=== PATIENT | female | born 1975 | race Caucasian/White ===

== ENCOUNTER → 2025-04-20 12:33 | Outpatient (BNVA) | payer OTHER, SELFPAY | PROVIDERS: Visit Provider Registered Nurse | DX: Z13.89 Encounter for screening for other disorder (principal) | CPT/HCPCS: 99202 ==

== ENCOUNTER → 2025-04-28 11:54 | Outpatient (BNVA) | payer OTHER, SELFPAY | PROVIDERS: Visit Provider Physician Assistant | DX: Z13.89 Encounter for screening for other disorder (principal) | CPT/HCPCS: 73564; 99215 ==

== ENCOUNTER → 2025-05-11 12:24 | Outpatient (BNVA) | payer OTHER, SELFPAY | PROVIDERS: Visit Provider Registered Nurse | DX: Z13.89 Encounter for screening for other disorder (principal) | CPT/HCPCS: 99213 ==

== ENCOUNTER 2025-08-30 08:29 | Outpatient (REF) | payer SELFPAY ==
--- NOTE | ~2025-08-30 | XR_ITS ---
EXAMINATION: XR KNEE 3 VIEWS LEFT HISTORY: M25.562 - Pain in left knee COMPARISON: Comparison is made with the prior examination dated 04/28/2025. FINDINGS: Standing AP views of both knees and additional lateral and sunrise patellar views of the left knee are submitted. Osseous mineralization is normal. There is no fracture or dislocation. The joint spaces are preserved. The soft tissues are unremarkable. There is no joint effusion. XR/XR knee LT 3V IMPRESSION: Unremarkable examination of the left knee. Electronically signed by: Colin Jacinto MD 08/30/2025 09:49 AM EST
== END 2025-08-30 08:30 | disposition home or self-care (01) ==
LOC: HO.HOSX 08:29
PROVIDERS: Visit Provider Physician Assistant
DX: S80.02XA Contusion of left knee, initial encounter (principal); M17.12 Unilateral primary osteoarthritis, left knee; W22.8XXA Striking against or struck by other objects, initial encounter; Y92.89 Other specified places as the place of occurrence of the external cause; Y93.89 Activity, other specified; Y99.0 Civilian activity done for income or pay
CPT/HCPCS: 20610; 73562; 99202; J0665; J1100; J2003

== ENCOUNTER 2025-08-30 09:33 | Outpatient (AMB) | payer OTHER, SELFPAY ==
--- NOTE | 2025-08-30 09:42 | MHC.OFFVIS ---
Vital Signs 08/30/25 09:48 Height 5 ft 6 in Weight 198 lb BMI 32.0 Intake Visit Reasons: [employer]- Left knee Contusion DOI 04/19/25 Intake Note: Meera is a 50 year old female who presents today as a new patient for a workers comp injury to left knee, DOI 04/19/25. Patient has a recent left knee meniscus repair in January of 2025. Due to workers comp insurance [facility] was unable to follow up with patient. Patient referred by work connection for a left knee contusion. Today patient reports she was doing good after surgery until she re-injured it when she hit her knee on a wooden counter. Currently states her knee swells, limited ROM when bending, feels like her knee is free-floating , strairs are difficult. Denies numbness or tingling in toes. Allergies No Known Allergies Allergy (Verified 08/30/25 09:47) Medication List - Last Reconciled 08/30/25 by Lucila Ferrara PA-C diclofenac sodium 1% 4 grams topical QID 30 days HPI HPI [employer]- Left knee Contusion DOI 04/19/25: Details: 50 yo female presents to the office today for left knee pain. s/p left knee AAA 01/2025 at [facility], recent work injury on 04/19/25. 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 She was sitting at the desk and slid in and hit her knee on the board of the desk and developed immediate pain and swelling. She was seeing work connection for her left knee who referred her to our office for ortho eval. She states she has been working without limitations. Occasionally she develops swelling and has difficulty with bending. She has difficulty with stairs. She wears a knee brace she uses which does help some. She does mention after her knee arthroscopy in 01/2025 she was doing well. 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 There is well healed portal sites. She has full range of motion with crepitus and lateral retropatellar tenderness is present. She has pain with patellar grind. No ligamentous laxity. Calf is supple and nontender neurovascularly intact. Office Procedures AMB Joint Injection/Aspiration Joint Injection/Aspiration Primary Site: Left Knee Prep: site was prepped using aseptic technique, ethochloride spray was applied and injection warnings given Injected: 40 mg of, Decadron, with 3 mL of, 1% plain Lidocaine, 0.25% Bupivacaine and in the joint Approach Used: anterolateral Procedure: The patient tolerated the procedure well and there was some relief with the local anesthesia Coding 55664 - Glenohumeral/Tronchanteric Bursa/Intraarticular Procedure code (CPT) selection complete Results Reviewed Results Reviewed: Xrays were obtained in the office today and personally reviewed by me show PF oa Assessment & Plan Assessment & Plan (1) Patellofemoral arthritis of left knee: Code(s): M17.12 - Unilateral primary osteoarthritis, left knee Category: Medical (2) Contusion of left knee: Code(s): S80.02XA - Contusion of left knee, initial encounter Category: Medical Plan Patient is status post left knee meniscectomy in January of 2025 which she was doing well postoperatively up until recently when she injured the knee at work on 04/19/2025. She has some patellofemoral arthritis which has been exacerbated from her work injury and we discussed options today which include steroid injection to help with the acute flare-up. The patient consented to proceed and tolerated the procedure well. I will also send her a prescription for Voltaren gel to the pharmacy. If symptoms persist over the next 8-12 weeks the patient will contact our office otherwise she will follow up as needed. Orders: Orders XR knee LT 3V Today M25.562 - Pain in left knee Medications: New diclofenac sodium 1% apply to single knee, ankle, foot; for foot includes sole/toes/top of foot 4 grams topical QID 100 grams 0RF 30 days Coding Level of Care Code New Pt Level 3 (48871) Complex visit Add On G2211 Diagnoses Patellofemoral arthritis of left knee M17.12 Contusion of left knee S80.02XA CPT Codes Coding - Joint 7: 97079 - Glenohumeral/Tronchanteric Bursa/Intraarticular ([id number])
[2025-08-30 09:48] VITALS: BMI 32.0
== END 2025-08-30 11:01 | disposition home or self-care (01) ==
LOC: HO.HOS 09:33
PROVIDERS: Visit Provider Physician Assistant
DX: M17.12 Unilateral primary osteoarthritis, left knee (principal); S80.02XA Contusion of left knee, initial encounter
CPT/HCPCS: 20610; 99203

== ENCOUNTER → 2025-08-30 09:34 | Outpatient (BNV) | payer OTHER, SELFPAY | PROVIDERS: Visit Provider Radiology Diagnostic Radiology | DX: M25.562 Pain in left knee (principal) | CPT/HCPCS: 73562 ==